=== PATIENT | female | born 1990 | race Caucasian/White ===

== ENCOUNTER 2016-09-13 15:14 | Emergency (ER) | payer BC ==
[~2016-09-13] VITALS: Ht 170.2 cm; Wt 68.9 kg
[2016-09-13 15:20] VITALS: BP_SYST 130
--- NOTE | 2016-09-13 15:20 | NUR ---
Pt placed to ER bed 08. Report given to CATE Cline.
--- NOTE | 2016-09-13 15:25 | NUR ---
Patient to ER C/O sharp abdominal cramping which started at 7 am this morning, patient is 14 weeks and her is high risk due to thryroid issues. Denies vaginal discharge, patient is calm, AAOx4, unlabored breathing, no signs of acute distress.
--- NOTE | 2016-09-13 15:29 | NUR ---
ER MD Glover at bedside for evaluation
[2016-09-13 15:57] LABS: BASOPHILS % (AUTO) 0.2 % (0.0-2.0); EOSINOPHILS # (AUTO) 0.1 K/uL (0.0-0.4); EOSINOPHILS % (AUTO) 0.7 % (0.0-4.0); HEMATOCRIT 33.9 % (36-48); HEMOGLOBIN 12.1 g/dL (12.0-16.0); LYMPHOCYTES # (AUTO) 1.5 K/uL (1.0-5.5); LYMPHOCYTES % (AUTO) 14.5 % (20.5-51.5); MEAN CORPUSCULAR HEMOGLOBIN 33 pg (27-31); MEAN CORPUSCULAR HGB CONC 36 % (32-36); MEAN CORPUSCULAR VOLUME 92 fL (79.0-98.0); MONOCYTES # (AUTO) 0.5 K/uL (0.0-1.0); MONOCYTES % (AUTO) 4.5 % (1.7-9.3); NEUTROPHILS % (AUTO) 80.1 % (40.0-70.0); PLATELET COUNT (AUTO) 174 K/uL (130-430); RED CELL DISTRIBUTION WIDTH 13.1 % (9.0-15.0); WHITE BLOOD COUNT (AUTO) 10.1 K/uL (4.8-10.8)
[2016-09-13 16:02] LABS: CALCIUM 8.3 mg/dL (8.4-11.0); CREATININE 0.57 mg/dL (0.55-1.30)
--- NOTE | 2016-09-13 16:03 | NUR ---
Patient moved to bed 7
[2016-09-13 16:07] LABS: BILIRUBIN,URINE NEGATIVE (NEGATIVE); CLARITY/URINE CLEAR (CLEAR); COLOR,URINE YELLOW (YELLOW); GLUCOSE,URINE NEGATIVE (NEGATIVE); KETONES,URINE NEGATIVE (NEGATIVE); LEUKOCYTE ESTERASE ,URINE 1+ (NEGATIVE); NITRITE, URINE NEGATIVE (NEGATIVE); PROTEIN URINE NEGATIVE (NEGATIVE); UROBILINOGEN,URINE 0.2 (0.2-1.0)
--- NOTE | 2016-09-13 16:08 | NUR ---
Patient off the unit for ultrasound
[2016-09-13 16:14] LABS: POTASSIUM 2.8 mmol/L (3.5-5.1)
[2016-09-13 16:31] LABS: THYROID STIMULATING HORMONE 3.16 uIu/mL (0.34-4.82)
[2016-09-13 16:42] LABS: BLOOD, URINE TRACE (NEGATIVE)
[2016-09-13 16:51] LABS: BACTERIA,URINE FEW /HPF (None Seen); RBC,URINE 0-3 /HPF (0-3)
[2016-09-13 16:52] LABS: MUCUS,URINE 1+ /LPF (None Seen)
--- NOTE | 2016-09-13 17:29 | NUR ---
ER MD Glover at bedside discussing test results with patient and the family
[2016-09-13] MEDS ORDERED: POTASSIUM CHLORIDE 10 MEQ TAB.PRT.SR PO ONE (17:45)
[2016-09-13 18:00] VITALS: BP_SYST 122
--- NOTE | 2016-09-13 18:00 | NUR ---
Patient given written and verbal discharge instructions and verbalizes understanding. ER MD Glover discussed with patient the results and treatment provided. Patient in stable condition. ID arm band Rx of KCl given. Patient educated on pain management and to follow up with PMD. Pain Scale 0/10. Opportunity for questions provided and answered.
== END 2016-09-13 18:00 | disposition home or self-care (01) ==
LOC: SED 15:14
DX: O26.892 Other specified pregnancy related conditions, second trimester (principal); E87.6 Hypokalemia; R19.7 Diarrhea, unspecified; R10.9 Unspecified abdominal pain; Z88.1 Allergy status to other antibiotic agents; Z3A.18 18 weeks gestation of pregnancy
CPT/HCPCS: 36415; 76805-TC; 80048; 81000-TC; 81025; 84443-TC; 84702-TC; 85025; 87086; 99285

== ENCOUNTER 2017-02-11 09:31 | Inpatient (IN) | payer BC ==
[~2017-02-11] VITALS: Ht 167.6 cm; Wt 78.0 kg
[2017-02-11] MEDS ORDERED: OXYTOCIN/NORMAL SALINE 1,000 ML IV SCH (11:29)
[2017-02-11] MEDS ORDERED: LR 1,000 ML IV ONE (11:29)
[2017-02-11] MEDS ORDERED: NALBUPHINE HCL 10 MG/ML AMP IVP PRN (11:30)
[2017-02-11] MEDS ORDERED: TERBUTALINE SULFATE 1 MG/ML VIAL SUBCUT ONE (11:30)
[2017-02-11] MEDS ORDERED: OXYTOCIN/NORMAL SALINE 1,000 ML IV ONE (11:42)
[2017-02-11 11:44] VITALS: BP_SYST 119
[2017-02-11 11:48] LABS: BASOPHILS % (AUTO) 0.2 % (0.0-2.0); EOSINOPHILS # (AUTO) 0.1 K/uL (0.0-0.4); EOSINOPHILS % (AUTO) 0.8 % (0.0-4.0); HEMOGLOBIN 13.2 g/dL (12.0-16.0); LYMPHOCYTES # (AUTO) 1.6 K/uL (1.0-5.5); LYMPHOCYTES % (AUTO) 15.9 % (20.5-51.5); MEAN CORPUSCULAR HEMOGLOBIN 31 pg (27-31); MEAN CORPUSCULAR HGB CONC 33 % (32-36); MEAN CORPUSCULAR VOLUME 93 fL (79.0-98.0); MONOCYTES # (AUTO) 0.5 K/uL (0.0-1.0); MONOCYTES % (AUTO) 4.9 % (1.7-9.3); NEUTROPHILS # (AUTO) 8.1 K/uL (1.8-7.7); NEUTROPHILS % (AUTO) 78.2 % (40.0-70.0); PLATELET COUNT (AUTO) 138 K/uL (130-430); RED BLOOD CELL COUNT(AUTO) 4.32 MIL/uL (4.2-6.2); RED CELL DISTRIBUTION WIDTH 12.6 % (9.0-15.0); WHITE BLOOD COUNT (AUTO) 10.3 K/uL (4.8-10.8)
[2017-02-11] MEDS: LR 1,000 ML IV SCH (18:37)
[2017-02-12] MEDS: LR 1,000 ML IV SCH ×3 (03:04→07:30)
[2017-02-12] MEDS ORDERED: fentaNYL CITRATE/PF 100 MCG/2 ML AMP IVP ONE (06:00)
[2017-02-12] MEDS ORDERED: FENT2mCg/mL-ROPIVA0.2%/NS EPID 150 ML EP SCH (06:00)
[2017-02-12] MEDS ORDERED: fentaNYL CITRATE/PF 100 MCG/2 ML AMP ONE (06:08)
[2017-02-12] MEDS ORDERED: FENT2mCg/mL-ROPIVA0.2%/NS EPID 150 ML EP ONE (06:09)
[2017-02-12] MEDS ORDERED: AMPICILLIN SODIUM 2 GM in NS 100 ML IV ONE (06:50)
[2017-02-12] MEDS ORDERED: LR 1,000 ML IV ONE (07:12)
[2017-02-12] MEDS ORDERED: DIPHENHYDRAMINE INJ 50 MG/ML VIAL IVP PRN (07:15)
[2017-02-12] MEDS ORDERED: ONDANSETRON HCL 4 MG/2 ML VIAL IVP PRN ×2 (07:15)
[2017-02-12] MEDS ORDERED: fentaNYL CITRATE/PF 100 MCG/2 ML AMP IVP PRN (07:15)
[2017-02-12] MEDS ORDERED: NALOXONE HCL 0.4 MG/ML AMP (NARCAN) IVP PRN (07:15)
[2017-02-12] MEDS ORDERED: NALBUPHINE HCL 10 MG/ML AMP IVP PRN (07:15)
[2017-02-12] MEDS ORDERED: ePHEDrine sulfate 50 MG/ML VIAL IVP PRN (07:15)
[2017-02-12] MEDS ORDERED: KETOROLAC TROMETHAMINE 30 MG VIAL IM PRN (07:15)
[2017-02-12] MEDS ORDERED: AMPICILLIN SODIUM 2 GM VIAL ONE (07:22)
[2017-02-12] MEDS ORDERED: BUPIVACAINE /PF 0.25% 30 ML VIAL INJ ONE (09:21)
[2017-02-12] MEDS ORDERED: AMPICILLIN SODIUM 1 GM in NS 50 ML IV SCH (10:50)
[2017-02-12] MEDS ORDERED: OXYTOCIN/NORMAL SALINE 1,000 ML IV SCH (14:37)
[2017-02-12] MEDS ORDERED: OXYTOCIN/NORMAL SALINE 1,000 ML IV ONE (14:37)
[2017-02-12] MEDS ORDERED: LANOLIN 7 GM OINT. TP PRN (14:45)
[2017-02-12] MEDS ORDERED: RHO(D) IMMUNE GLOBULIN/MALTOSE 1500 UNITS/1.3 ML (WINHRO) IM PRN (14:45)
[2017-02-12] MEDS ORDERED: ANUSOL 1 EA SUPP.RECT (PREPARATION H) RC PRN (14:45)
[2017-02-12] MEDS ORDERED: METHYLERGONOVINE MALEATE 0.2 MG TABLET PO PRN (14:45)
[2017-02-12] MEDS ORDERED: HYDROCORTISONE 0.5%, 28.35 GM TOPICAL CREAM TP PRN (14:45)
[2017-02-12] MEDS ORDERED: MEASLES,MUMPS&RUBELLA VACC/PF 12500 UNIT/0.5 ML VIAL SUBQ PRN (14:45)
[2017-02-12] MEDS ORDERED: HYDROcodone/ACETAMIN 5-325 MG TAB (NORCO/ VICODIN) PO PRN (14:45)
[2017-02-12] MEDS ORDERED: OXYCODONE/ACETAMINOPHEN 5-325 TABLET PO PRN (14:45)
[2017-02-12] MEDS ORDERED: GLYCERIN/WITCH HAZEL (TUCKS PADS) TP PRN (14:45)
[2017-02-12] MEDS ORDERED: SENNOSIDES/DOCUSATE SODIUM 1 TAB TABLET(SENOKOT-S) PO PRN (14:45)
[2017-02-12] MEDS ORDERED: DERMOPLAST SPRAY TP PRN (14:45)
[2017-02-12] MEDS: OXYCODONE/ACETAMINOPHEN 5-325 TABLET PO PRN (15:40)
[2017-02-12] MEDS: DOCUSATE SODIUM 100 MG CAPSULE PO PRN (15:40)
[2017-02-12] MEDS: IBUPROFEN 600 MG TABLET PO SCH ×2 (17:58→23:57)
[2017-02-12] MEDS ORDERED: TEMAZEPAM 15 MG CAPSULE PO PRN (21:00)
[2017-02-13] MEDS: IBUPROFEN 600 MG TABLET PO SCH ×4 (06:01→23:44)
[2017-02-13 07:17] LABS: BASOPHILS % (AUTO) 0.1 % (0.0-2.0); EOSINOPHILS # (AUTO) 0.1 K/uL (0.0-0.4); LYMPHOCYTES # (AUTO) 1.7 K/uL (1.0-5.5); MEAN CORPUSCULAR HEMOGLOBIN 31 pg (27-31); MEAN CORPUSCULAR HGB CONC 34 % (32-36); MEAN CORPUSCULAR VOLUME 92 fL (79.0-98.0); MONOCYTES # (AUTO) 0.6 K/uL (0.0-1.0)
[2017-02-13 07:23] LABS: EOSINOPHILS % (AUTO) 0.8 % (0.0-4.0); HEMATOCRIT 32.1 % (36-48); HEMOGLOBIN 10.8 g/dL (12.0-16.0); LYMPHOCYTES % (AUTO) 13.2 % (20.5-51.5); MONOCYTES % (AUTO) 4.8 % (1.7-9.3); NEUTROPHILS # (AUTO) 10.9 K/uL (1.8-7.7); NEUTROPHILS % (AUTO) 81.1 % (40.0-70.0); PLATELET COUNT (AUTO) 109 K/uL (130-430); RED BLOOD CELL COUNT(AUTO) 3.51 MIL/uL (4.2-6.2); RED CELL DISTRIBUTION WIDTH 12.6 % (9.0-15.0); WHITE BLOOD COUNT (AUTO) 13.3 K/uL (4.8-10.8)
[2017-02-13] MEDS: DOCUSATE SODIUM 100 MG CAPSULE PO PRN (23:45)
[2017-02-14] MEDS: OXYCODONE/ACETAMINOPHEN 5-325 TABLET PO PRN ×2 (03:25→12:36)
[2017-02-14] MEDS: IBUPROFEN 600 MG TABLET PO SCH ×2 (05:21→08:21)
[2017-02-14] MEDS ORDERED: MINERAL OIL 30 ML UDC PO ONE (15:54)
== END 2017-02-14 15:55 | disposition home or self-care (01) | DRG 775 ==
LOC: SPU 09:31
PROVIDERS: ADMIT Obstetrics & Gynecology; ATTEND Obstetrics & Gynecology
PROC: 10E0XZZ Delivery of Products of Conception, External Approach (ICD-10-PCS; principal; 2017-02-12)
PROC: 10907ZC Drainage of Amniotic Fluid, Therapeutic from Products of Conception, Via Natural or Artificial Opening (ICD-10-PCS; 2017-02-12)
PROC: 3E0R3CZ (ICD-10-PCS; 2017-02-12)
PROC: 00HU33Z Insertion of Infusion Device into Spinal Canal, Percutaneous Approach (ICD-10-PCS; 2017-02-12)
PROC: 3E0134Z Introduction of Serum, Toxoid and Vaccine into Subcutaneous Tissue, Percutaneous Approach (ICD-10-PCS; 2017-02-12)
DX: O41.03X0 Oligohydramnios, third trimester, not applicable or unspecified (principal); E03.9 Hypothyroidism, unspecified; O99.284 Endocrine, nutritional and metabolic diseases complicating childbirth; O69.81X0 Labor and delivery complicated by cord around neck, without compression, not applicable or unspecified; O70.9 Perineal laceration during delivery, unspecified; Z37.0 Single live birth; Z3A.40 40 weeks gestation of pregnancy; Z23 Encounter for immunization
CPT/HCPCS: 36415; 81002-TC; 85025; 86592; 86886; 86900; 86901; J0290; J2300; J2590; J3010; J3490; J7120